=== PATIENT | male | born 1985 ===

== ENCOUNTER 2022-03-03 22:20 | Emergency (ER) | payer OTHER, SELFPAY ==
--- OUTSIDE RECORDS SUMMARY | 2022-03-03 22:24 | XMS REPORT | Continuity of Care Document ---
:1985 Author Organization [facility] t Address [address] [place] [address] Care Team Providers Name Role Phone Pob, [facility] Main Attending Clinician Unavailable Mi Reyes MD Attending Clinician Mi REYES Attending Clinician Unavailable Doctor Unassigned, Name Attending Clinician Unavailable CATALINO HITCHCOCK Attending Clinician Unavailable Melanie Frankel Attending Clinician Catalino Hitchcock MD Attending Clinician Pcp, Does Not Have A Attending Clinician Thai BERG Attending Clinician Pob1, Care Clinic Attending Clinician Unavailable Vishnu Jang Attending Clinician Vishnu HARTLEY Attending Clinician Unavailable FRANSISCA Attending Clinician Unavailable Payers Payer Name Policy Type Policy Number Effective Date Expiration Date Mi MARTIN II [id number] 2019 00:00:00 Problems Condition Condition Condition Status Onset Resolution Last Treating Co mments Source Name Details Category Date Date Treatment Clinician Date Viral Viral Disease Active 2020-0 Univers syndrome syndrome 4-15 ity of 00:00: [address] Cough Cough Disease Active 2020-0 Univers 4-15 ity of 00:: [address] Diarrhea, Diarrhea, Disease Active 2020-0 Uni vers unspecifie unspecifie 4-15 it y of d type d type 00:00: [address] Congestion Congestion Disease Active 2020-0 U nivers of nasal of nasal 4-15 ity of sinus sinus 00:00: [address] Sinus Sinus Disease Active 2020-0 Univers headache headache 4-15 ity of 00:00: [address] Allergies, Adverse Reactions, Alerts Allergy Allergy Status Severity Reaction(s) Onset Inactive Treating Comm ents Source Name Type Date Date Clinician NO KNOWN Drug Active Univers ALLERGIE Class ity of S [facility] Social History Social Habit Start Date Stop Date Quantity Comments Source History SDWV University o f Alcohol Std Drinks [facility] History SDOH University o f Alcohol Binge [facility] al [place] Exposure to Not sure [facility] SARS-CoV-2 (event) [facility] Cigarettes smoked 2020-03-12 2020-03-12 Univers ity of current (pack per 00:00:00 00:00:00 [facility] ) - Reported Branch Cigarette 2020-03-12 2020-03-12 University of pack-years 00:00:00 00:00:00 [facility] Alcohol intake 2020-03-12 2020-03-12 Current drinker Unive rsity of 00:00:00 00:00:00 of alcohol [facility] (finding) [place] Tobacco use and 2020-03-12 2020-03-12 Never used Universit y of exposure 00:00:00 00:00:00 [facility] History SDOH 2020-03-10 2020-03-10 1 University o f Alcohol Frequency 00:00:00 00:00:00 [facility] Alcohol Comment 2020-03-10 2020-03-10 rarely Universit y of 00:00:00 00:00:00 [facility] History of tobacco 2016-03-10 Smoker Univer sity of use 00:00:00 [facility] Sex Ass[birth year] At [birth year] Universit y of 00:00:00 00:00:00 [facility] Smoking Status Start Date Stop Date Source Former smoker 2020-03-12 00:00:00 2020-03-12 00:00:00 Universi ty of [facility] Medications Ordered Filled Start Stop Current Ordering Indication Dosage Frequency Signature Comments Components Source Medication Medication Date Date Medication? Clinician (SIG) Name Name bismuth Yes [id number] 262mg Take 1 Uni vers subsalicyla 4-15 tablet by ity of te 00:00: mouth 4 [place] (PEPTO-BISM 00 (four) Medica l OL) 262 mg times Branch chewable daily as tablet needed (diarrhea/ Loss Stools). fluticasone Yes [id number] 1{spray Use 1 Univers propionate 4-15 } [place] in ity o f 50 00:00: each [place] mcg/actuati 00 nostril Medic al on nasal daily. Branch spray benzonatate 2020-0 Yes [id number] 100mg Take 1 Univers (TESSALON 4-15 capsule by ity of PERLES) 100 00:00: mouth 3 [place] as mg capsule 00 (three) Medica l times Branch daily as needed for Cough. acetaminoph 2020-0 Yes [id number] 500mg Take 1 Univers en (TYLENOL 4-15 tablet by ity of EXTRA 00:00: mouth [place] STRENGTH) 00 every 6 Medical 500 mg (six) Branch tablet hours as needed (Headache) . bismuth 2020-0 Yes [id number] 262mg Take 1 Uni vers subsalicyla 4-15 tablet by ity of te 00:00: mouth 4 [place] (PEPTO-BISM 00 (four) Medica l OL) 262 mg times Branch chewable daily as tablet needed (diarrhea/ Loss Stools). fluticasone 2020-0 Yes [id number] 1{spray Use 1 Univers propionate 4-15 } [place] in ity o f 50 00:00: each [place] mcg/actuati 00 nostril Medic al on nasal daily. Branch spray benzonatate 2020-0 Yes [id number] 100mg Take 1 Univers (TESSALON 4-15 capsule by ity of PERLZauber) 100 00:00: mouth 3 [place] as mg capsule 00 (three) Medica l times Branch daily as needed for Cough. acetaminoph 2020-0 Yes [id number] 500mg Take 1 Univers en (TYLENOL 4-15 tablet by ity of EXTRA 00:00: mouth [place] STRENGTH) 00 every 6 Medical 500 mg (six) Branch tablet hours as needed (Headache) . bismuth 2020-0 Yes [id number] 262mg Take 1 Uni vers subsalicyla 4-15 tablet by ity of te 00:00: mouth 4 [place] (PEPTO-BISM 00 (four) Medica l OL) 262 mg times Branch chewable daily as tablet needed (diarrhea/ Loss Stools). fluticasone 2020-0 Yes [id number] 1{spray Use 1 Univers propionate 4-15 } [place] in ity o f 50 00:00: each [place] mcg/actuati 00 nostril Medic al on nasal daily. Branch spray benzonatate 2020-0 Yes [id number] 100mg Take 1 Univers (TESSALON 4-15 capsule by ity of PERLES) 100 00:00: mouth 3 [place] as mg capsule 00 (three) Medica l times Branch daily as needed for Cough. acetaminoph 2020-0 Yes [id number] 500mg Take 1 Univers en (TYLENOL 4-15 tablet by ity of EXTRA 00:00: mouth [place] STRENGTH) 00 every 6 Medical 500 mg (six) Branch tablet hours as needed (Headache) . bismuth 2020-0 Yes [id number] 262mg Take 1 Uni vers subsalicyla 4-15 tablet by ity of te 00:00: mouth 4 [place] (PEPTO-BISM 00 (four) Medica l OL) 262 mg times Branch chewable daily as tablet needed (diarrhea/ Loss Stools). fluticasone 2020-0 Yes [id number] 1{spray Use 1 Univers propionate 4-15 } [place] in ity o f 50 00:00: each [place] mcg/actuati 00 nostril Medic al on nasal daily. Branch spray benzonatate 2020-0 Yes [id number] 100mg Take 1 Univers (TESSALON 4-15 capsule by ity of PERLES) 100 00:00: mouth 3 [place] as mg capsule 00 (three) Medica l times Branch daily as needed for Cough. acetaminoph 2020-0 Yes [id number] 500mg Take 1 Univers en (TYLENOL 4-15 tablet by ity of EXTRA 00:00: mouth [place] STRENGTH) 00 every 6 Medical 500 mg (six) Branch tablet hours as needed (Headache) . bismuth 2020-0 Yes [id number] 262mg Take 1 Uni vers subsalicyla 4-15 tablet by ity of te 00:00: mouth 4 [place] (PEPTO-BISM 00 (four) Medica l OL) 262 mg times Branch chewable daily as tablet needed (diarrhea/ Loss Stools). fluticasone 2020-0 Yes [id number] 1{spray Use 1 Univers propionate 4-15 } [place] in ity o f 50 00:00: each [place] mcg/actuati 00 nostril Medic al on nasal daily. Branch spray benzonatate 2020-0 Yes [id number] 100mg Take 1 Univers (TESSALON 4-15 capsule by ity of PERLES) 100 00:00: mouth 3 [place] as mg capsule 00 (three) Medica l times Branch daily as needed for Cough. acetaminoph 2020-0 Yes [id number] 500mg Take 1 Univers en (TYLENOL 4-15 tablet by ity of EXTRA 00:00: mouth [place] STRENGTH) 00 every 6 Medical 500 mg (six) Branch tablet hours as needed (Headache) . bismuth 2020-0 Yes [id number] 262mg Take 1 Uni vers subsalicyla 4-15 tablet by ity of te 00:00: mouth 4 [place] (PEPTO-BISM 00 (four) Medica l OL) 262 mg times Branch chewable daily as tablet needed (diarrhea/ Loss Stools). fluticasone 2020-0 Yes [id number] 1{spray Use 1 Univers propionate 4-15 } [place] in ity o f 50 00:00: each [place] mcg/actuati 00 nostril Medic al on nasal daily. Branch spray benzonatate 2020-0 Yes [id number] 100mg Take 1 Univers (TESSALON 4-15 capsule by ity of PERLES) 100 00:00: mouth 3 [place] as mg capsule 00 (three) Medica l times Branch daily as needed for Cough. acetaminoph 2020-0 Yes [id number] 500mg Take 1 Univers en (TYLENOL 4-15 tablet by ity of EXTRA 00:00: mouth [place] STRENGTH) 00 every 6 Medical 500 mg (six) Branch tablet hours as needed (Headache) . bismuth 2020-0 Yes [id number] 262mg Take 1 Uni vers subsalicyla 4-15 tablet by ity of te 00:00: mouth 4 [place] (PEPTO-BISM 00 (four) Medica l OL) 262 mg times Branch chewable daily as tablet needed (diarrhea/ Loss Stools). fluticasone 2020-0 Yes [id number] 1{spray Use 1 Univers propionate 4-15 } [place] in ity o f 50 00:00: each [place] mcg/actuati 00 nostril Medic al on nasal daily. Branch spray benzonatate 2020-0 Yes [id number] 100mg Take 1 Univers (TESSALON 4-15 capsule by ity of PERLES) 100 00:00: mouth 3 [place] as mg capsule 00 (three) Medica l times Branch daily as needed for Cough. acetaminoph 2020-0 Yes [id number] 500mg Take 1 Univers en (TYLENOL 4-15 tablet by ity of EXTRA 00:00: mouth [place] STRENGTH) 00 every 6 Medical 500 mg (six) Branch tablet hours as needed (Headache) . bismuth 2020-0 Yes [id number] 262mg Take 1 Uni vers subsalicyla 4-15 tablet by ity of te 00:00: mouth 4 [place] (PEPTO-BISM 00 (four) Medica l OL) 262 mg times Branch chewable daily as tablet needed (diarrhea/ Loss Stools). fluticasone 2020-0 Yes [id number] 1{spray Use 1 Univers propionate 4-15 } [place] in ity o f 50 00:00: each [place] mcg/actuati 00 nostril Medic al on nasal daily. Branch spray benzonatate 2020-0 Yes [id number] 100mg Take 1 Univers (TESSALON 4-15 capsule by ity of ERIK) 100 00:00: mouth 3 [place] as mg capsule 00 (three) Medica l times Branch daily as needed for Cough. acetaminoph 2020-0 Yes [id number] 500mg Take 1 Univers en (TYLENOL 4-15 tablet by ity of EXTRA 00:00: mouth [place] STRENGTH) 00 every 6 Medical 500 mg (six) Branch tablet hours as needed (Headache) . albuterol 2019-0 Yes [id number] 2{puff} Inhale 2 Univers 90 4-13 Puffs ity of mcg/actuati 00:00: every 4 [place] as on inhaler 00 (four) Medical hours as Branch needed for Shortness of Breath or Chest tightness (cough). albuterol 2020-0 Yes [id number] 2{puff} Inhale 2 Univers 90 4-13 Puffs ity of mcg/actuati 00:00: every 4 [place] as on inhaler 00 (four) Medical hours as Branch needed for Shortness of Breath or Chest tightness (cough). albuterol 2020-0 Yes [id number] 2{puff} Inhale 2 Univers 90 4-13 Puffs ity of mcg/actuati 00:00: every 4 [place] as on inhaler 00 (four) Medical hours as Branch needed for Shortness of Breath or Chest tightness (cough). albuterol 2020-0 Yes [id number] 2{puff} Inhale 2 Univers 90 4-13 Puffs ity of mcg/actuati 00:00: every 4 [place] as on inhaler 00 (four) Medical hours as Branch needed for Shortness of Breath or Chest tightness (cough). albuterol 2020-0 Yes [id number] 2{puff} Inhale 2 Univers 90 4-13 Puffs ity of mcg/actuati 00:00: every 4 [place] as on inhaler 00 (four) Medical hours as Branch needed for Shortness of Breath or Chest tightness (cough). albuterol 2020-0 Yes [id number] 2{puff} Inhale 2 Univers 90 4-13 Puffs ity of mcg/actuati 00:00: every 4 [place] as on inhaler 00 (four) Medical hours as Branch needed for Shortness of Breath or Chest tightness (cough). albuterol 2020-0 Yes [id number] 2{puff} Inhale 2 Univers 90 4-13 Puffs ity of mcg/actuati 00:00: every 4 [place] as on inhaler 00 (four) Medical hours as Branch needed for Shortness of Breath or Chest tightness (cough). albuterol 2020-0 Yes [id number] 2{puff} Inhale 2 Univers 90 4-13 Puffs ity of mcg/actuati 00:00: every 4 [place] as on inhaler 00 (four) Medical hours as Branch needed for Shortness of Breath or Chest tightness (cough). Vital Signs Vital Name Observation Time Observation Value Comments Source Systolic blood 2021-01-10 23:37:00 128 [facility]Hg[facility] 2021-01-10 23:37:00 72 [facility] 2021-01-10 23:37:00 160 /min [facility] Body temperature 2021-01-10 23:37:00 37.22 Myriam [facility] Respiratory rate 2021-01-10 23:37:00 20 /min [facility] Body weight 2021-01-10 23:37:00 58.968 kg [facility] BMI 2021-01-10 23:37:00 19.77 kg/m2 [facility] Oxygen saturation in 2021-01-10 23:37:00 98 /min [facility] Arterial blood by [facility] Pulse oximetry Branch Systolic blood 2020-03-12 13:54:00 116 mm[Hg] Univer sity of pressure [facility] Diastolic blood 2020-03-12 13:54:00 70 mm[Hg] Unive rsity of pressure [facility] Heart rate 2020-03-12 13:54:00 69 /min Universi ty [facility] Body temperature 2020-03-12 13:54:[address] [facility] 2020-03-12 13:54:00 16 /min [facility] Body height 2020-03-12 13:54:00 172.7 cm Universi ty [facility] Body weight 2020-03-12 13:54:00 61.236 kg [facility] BMI 2020-03-12 13:54:00 20.53 kg/m2 [facility] Oxygen saturation in 2020-03-12 13:54:00 98 /min [facility] blood by [facility] Pulse oximetry Branch Procedures Procedure Date / Time Performed Performing Clinician [facility] e ASSIGNMENT OF BENEFITS 2021-07-14 19:46:49 Doctor Unassigned, No [facility] NOTICE OF PRIVACY 2021-01-10 23:32:10 Doctor Unassigned, No [facility] PRACTICES [facility] CONSENT/REFUSAL FOR 2021-01-10 23:31:48 Doctor Unassigned, No [facility] DIAGNOSIS AND [facility] TREATMENT Encounters Start End Encounter Admission Attending Care Care Encounter Source Date/Time Date/Time Type Type Clinicians Facility Department ID 2021-09-26 Emergency [facility] [id number] Univers 23:33:04 ity of [facility] 2021-07-14 2021-07-14 Retail Leasing Agent Shoshana, Liam Lab Main [facility] 1.2.8 [id number] Univers 14:49:14 15:04:14 Visit Liu Reyes [id number] 0 ity [place] [id number] Hanna Cheatham [id number] Ar d[place] [address] Branch Building 2021-07-14 2021-07-14 Outpatient R [facility] [id number] Univers 15:00:00 15:00:00 [id number] ity of [facility] 2021-07-14 2021-07-14 Outpatient R ERIC [facility] [id number] Univers 15:00:00 15:00:00 LIU [facility] 2021-07-14 2021-07-14 Orders Doctor NENITA [id number] Univers 00:00:00 00:00:00 Only Unassigned, FERNANDO [id number] ity of [place] [facility] [id number] [place] as [id number] [facility] 009 [place] 2021-03-06 2021-03-06 Outpatient Michaela HITCHCOCK [facility] [id number] Univers 09:30:00 09:30:00 ANTWON [id number] [facility] 2021-03-06 2021-03-06 Outpatient Michaela HITCHCOCK [facility] [id number] Univers 09:30:00 09:30:00 ANTWON [facility] 2021-01-10 2021-01-10 Emergency Lisa Barron [facility] [id number] Univers 17:38:00 18:14:00 Melanie Lentz [id number] i ty of [place] [id number] [place] [facility] [id number] [facility] 084 [place] 2021-01-10 2021-01-10 [facility] [id number] Univers 00:00:00 00:00:00 [facility] [id number] it y of [place] [id number] [place] as Professio [phone] Ar dical nal [address] [place] [address] 2021-01-10 2021-01-10 Letter [facility] [id number] Univers 00:00:00 00:00:00 (Out) Patient Health [id number] it y of Does [place] [id number] [place] Professio [phone] Ar dicnv nal [address] [place] [address] 2020-03-13 2020-03-13 Telephone Thai [facility] [id number] Univers 00:00:00 00:00:00 [facility] [id number] it y of [place] [id number] [place] as Professio [phone] [address] 2020-03-12 2020-03-12 Urgent Pob1, Acute Care Clinic [facility] 1. [id number] Univers 08:46:47 09:06:47 Care Carissa Hartley [facility] [id number] ity of [place] [id number] [place] as Professio [phone] [address] 2020-03-12 2020-03-12 Outpatient R CARMEN [facility] [id number] Univers 08:40:00 08:40:00 [facility] 2020-03-10 2020-03-10 Outpatient R ANDRY GONGORA [facility] [id number] Univers 13:20:00 13:20:00 [facility] Results This patient has no known results.
[2022-03-04] MEDS ORDERED: BUPIVACAINE 0.5% PF 10 ML VIAL ONE (00:24)
[2022-03-04] MEDS ORDERED: LIDOCAINE 1% MPF 5 ML VIAL ONE (00:24)
--- NOTE | 2022-03-04 01:18 | ER ---
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 Coronavirus screen: At this time, the client does not indicate any symptoms associated with coronavirus-19. Ebola Screen: No symptoms or risks identified at this time. Initial Sepsis Screen: Does the patient meet any 2 criteria? No. Patient's initial sepsis screen is negative. Does the patient have a suspected source of infection? No. Patient's initial sepsis screen is negative. Risk Assessment: Do you want to hurt yourself or someone else? Patient reports no desire to harm self or others. Onset of symptoms was March 03, 2022 at 22:29. 22:28 Method Of Arrival: Ambulatory ld1 22:28 Acuity: CARMEN 3 ld1 Triage Assessment: 22:29 General: Appears in no apparent distress. comfortable, Behavior is calm, cooperative, ld1 appropriate for age. Pain: Complains of pain in right hand Pain currently is 5 out of 10 on a pain scale. Neuro: Level of Consciousness is awake, alert, obeys commands, Oriented to person, place, time, situation. Cardiovascular: Capillary refill < 3 seconds Patient's skin is warm and dry. Respiratory: Airway is patent Respiratory effort is even, unlabored. Derm: Skin has skin tears on Right hand lacerations. Historical: - Allergies: 22:29 Bees; ld1 - Home Meds: 22:29 None [Active]; ld1 - PMHx: 22:29 mitral valve prolapse; ld1 - PSHx: 22:29 None; ld1 - Immunization history:: Adult Immunizations up to date, Client reports having NOT received the Covid vaccine. - Social history:: Smoking status: Reported history of juuling and/or vaping. Patient/guardian denies using alcohol. Screenin:30 Abuse screen: Denies threats or abuse. Nutritional screening: No deficits noted. tw5 Tuberculosis screening: No symptoms or risk factors identified. Fall Risk None identified. Assessment: 23:30 General: Appears in no apparent distress. uncomfortable, Behavior is calm, cooperative, tw5 appropriate for age. Pain: Complains of pain in dorsal aspect of proximal phalanx of right index finger, dorsal aspect of proximal phalanx of right middle finger and dorsum of right hand Pain does not radiate. Pain currently is 8 out of 10 on a pain scale. Neuro: Level of Consciousness is awake, alert, obeys commands, Oriented to person, place, time, situation. Cardiovascular: Patient's skin is warm and dry. Respiratory: Airway is patent Respiratory effort is even, unlabored, Respiratory pattern is regular, symmetrical. GI: No signs and/or symptoms were reported involving the gastrointestinal system. : No signs and/or symptoms were reported regarding the genitourinary system. EENT: No signs and/or symptoms were reported regarding the EENT system. Derm: Skin is pink, warm \T\ dry. Laceration to the right index finger, abrasion to the right hand. Musculoskeletal: Circulation, motion, and sensation intact. Range of motion: limited in MCP of right index finger and MCP of right middle finger. 03/04 01:36 Reassessment: Patient appears in no apparent distress at this time. Patient and/or tw5 family updated on plan of care and expected duration. Pain level reassessed. Patient is alert, oriented x 3, equal unlabored respirations, skin warm/dry/pink. Orthoglass splint placed on right hand, checked by ED provider. Vital Signs: 03/03 22:28 BP 171 / 87; Pulse 104; Resp 18; Temp 99.0(TE); Pulse Ox 99% on R/A; Weight 61.23 kg; ld1 Height 5 ft. 9 in. (175.26 cm); Pain 5/10; 03/04 01:36 BP 149 / 86; Pulse 81; Resp 16; Pulse Ox 99% on R/A; tw5 03/03 22:28 Body Mass Index 19.94 (61.23 kg, 175.26 cm) ld1 ED Course: 03/03 22:23 Patient arrived in ED. kz 22:29 Triage completed. ld1 22:29 Arm band placed on left wrist. ld1 22:37 Ayo Bryan PA is PHCP. cp 22:37 Ayo Marin MD is Attending Physician. cp 23:21 Arie Livingston, RN is Primary Nurse. jb4 23:30 Patient has correct armband on for positive identification. Bed in low position. Call tw5 light in reach. Side rails up X 1. Pulse ox on. NIBP on. 23:45 XRAY Hand RIGHT 3 View In Process Unspecified. EDMS 03/04 01:16 Diego Maxwell MD is Referral Physician. cp 01:37 No provider procedures requiring assistance completed. Patient did not have IV access tw5 during this emergency room visit. Administered Medications: 00:20 Drug: Lidocaine (1 %) 10 ml {Note: administered by ED provider.} Volume: 20 ml; Route: tw5 Infiltration; 00:20 Drug: Marcaine (bupivacaine) (0.5 %) 10 ml {Note: Administered by ED provider.} Volume: tw5 10 ml; Route: Infiltration; 00:43 Not Given (Patient Refused): morphine 4 mg IVP once; RASS on ADMIN: Combtv4, Very tw5 Agttd3, Agttd2, Rstlss1, AlertClm0, Drwsy-1, Lt Sdtn-2, Mod Sdtn-3, Dp Sdtn-4, UnArsble-5 00:43 Not Given (Patient Refused): NS 0.9% 1000 ml IV at 1 bolus Per protocol; 1000 mL bolus tw5 Outcome: 01:18 Discharge ordered by MD. cp 01:37 Discharged to home ambulatory, with friend. tw5 01:37 Condition: stable 01:37 Discharge instructions given to patient, Instructed on discharge instructions, follow up and referral plans. medication usage, Demonstrated understanding of instructions, follow-up care, medications, Prescriptions given X 1. 01:38 Patient left the ED. tw5 Signatures: Dispatcher [employer] [facility] Ayo Bryan PA PA cp Arie Livingston, RN RN jb4 Pippa Brown RN RN Jennifer Covarrubias tw5 Reema Espino Corrections: (The following items were deleted from the chart) 01:37 01:37 No provider procedures requiring assistance completed. tw5 tw5 01:38 01:36 Reassessment: Patient appears in no apparent distress at this time. Patient tw5 and/or family updated on plan of care and expected duration. Pain level reassessed. Patient is alert, oriented x 3, equal unlabored respirations, skin warm/dry/pink. tw5
--- NOTE | 2022-03-04 01:18 | EDPHYS ---
Physician Documentation [facility] Name: Gilberto Pugh Age: 36 yrs Sex: Male : 1985 Arrival Date: 03/03/2022 Time: 22:23 Bed 23 Private MD: ED Physician Ayo Marin HPI: 03/03 23:35 This 36 yrs old Male presents to ER via Ambulatory with complaints of Crush Injury To cp Hand - Right. 23:35 The patient or guardian reports crush injury. The complaints affect the right hand cp diffusely. Context: The problem was sustained at work, resulted from a crush injury, heavy door of engine room. 03/04 00:18 Onset: The symptoms/episode began/occurred just prior to arrival. Associated signs and cp symptoms: Pertinent negatives: cyanosis distally. Historical: - Allergies: 03/03 22:29 Bees; ld1 - Home Meds: 22:29 None [Active]; ld1 - PMHx: 22:29 mitral valve prolapse; ld1 - PSHx: 22:29 None; ld1 - Immunization history:: Adult Immunizations up to date, Client reports having NOT received the Covid vaccine. - Social history:: Smoking status: Reported history of juuling and/or vaping. Patient/guardian denies using alcohol. ROS: 23:40 MS/extremity: Positive for injury or acute deformity, decreased range of motion, pain, cp of the right hand. 23:40 Constitutional: Negative for body aches, chills, fever. cp 23:40 All other systems are negative. cp Exam: 23:45 Constitutional: The patient appears in no acute distress, alert, awake, non-toxic, well cp developed, well nourished, uncomfortable. 23:45 Musculoskeletal/extremity: Extremities: grossly normal except: noted in the right hand: cp swelling, tenderness, ROM: limited active range of motion, in the right index finger, limited passive range of motion due to pain, in the right index finger, Perfusion: the extremity is normally perfused throughout, the right index finger Severe pain noted. Vital Signs: 22:28 BP 171 / 87; Pulse 104; Resp 18; Temp 99.0(TE); Pulse Ox 99% on R/A; Weight 61.23 kg; ld1 Height 5 ft. 9 in. (175.26 cm); Pain 04/06; 03/04 01:36 BP 149 / 86; Pulse 81; Resp 16; Pulse Ox 99% on R/A; tw5 03/03 22:28 Body Mass Index 19.94 (61.23 kg, 175.26 cm) ld1 Procedures: 01:30 Splinting: Splint applied to right index and right middle fingers using Orthoglass cp splint, sugar tong type. applied by tech. Examined by me, post splint application: neurovascular intact, Patient tolerated well. MDM: 03/03 23:10 Patient medically screened. gilberto 03/04 01:18 Data reviewed: vital signs, nurses notes, radiologic studies, plain films. cp 01:18 Differential diagnosis: dislocation, open fracture, closed fracture, contusion. Test cp interpretation: by ED physician or midlevel provider: plain radiologic studies. Counseling: I had a detailed discussion with the patient and/or guardian regarding: the historical points, exam findings, and any diagnostic results supporting the discharge/admit diagnosis, radiology results, the need for outpatient follow up, for definitive care, a hand specialist. Response to treatment: the patient's symptoms have markedly improved after treatment, and as a result, I will discharge patient. 03/03 23:29 Order name: XRAY Hand RIGHT 3 View cp 03/03 23:48 Order name: Dressing - Wound; Complete Time: 01:35 cp 03/03 23:48 Order name: Gloves, Sterile; Complete Time: 01:35 cp 03/03 23:48 Order name: Setup Suture Tray; Complete Time: 01:35 cp 03/04 00:36 Order name: Dressing - Wound: antibiotic ointment and nonstick dressing; Complete Time: cp 01:34 Administered Medications: 00:20 Drug: Lidocaine (1 %) 10 ml {Note: administered by ED provider.} Volume: 20 ml; Route: tw5 Infiltration; 00:20 Drug: Marcaine (bupivacaine) (0.5 %) 10 ml {Note: Administered by ED provider.} Volume: tw5 10 ml; Route: Infiltration; 00:43 Not Given (Patient Refused): morphine 4 mg IVP once; RASS on ADMIN: Combtv4, Very tw5 Agttd3, Agttd2, Rstlss1, AlertClm0, Drwsy-1, Lt Sdtn-2, Mod Sdtn-3, Dp Sdtn-4, UnArsble-5 00:43 Not Given (Patient Refused): NS 0.9% 1000 ml IV at 1 bolus Per protocol; 1000 mL bolus tw5 Disposition: 07:15 Co-signature as Attending Physician, Ayo Marin MD I agree with the assessment and gilberto plan of care. Disposition Summary: 03/04/22 01:18 Discharge Ordered Location: Home cp Problem: new cp Symptoms: have improved cp Condition: Stable cp Diagnosis - Displaced fracture of proximal phalanx of right index finger, initial encounter for cp closed fracture Followup: cp - With: Diego Maxwell MD - When: 1 - 2 days - Reason: Recheck today's complaints Discharge Instructions: - Discharge Summary Sheet cp - Finger Fracture, Adult cp Forms: - Medication Reconciliation Form cp - Thank You Letter cp - Antibiotic Education cp - Prescription Opioid Use cp Prescriptions: - Naprosyn 500 mg Oral Tablet - take 1 tablet by ORAL route 2 times per day take with food; 20 tablet; Refills: cp 0, Product Selection Permitted Signatures: Dispatcher [employer] EDAyo Dwyer MD MD cha Page, Corey, EVELYN PA cp Pippa Brown RN RN ld1 Jennifer Schultz tw5 Corrections: (The following items were deleted from the chart) 00:18 04 23:35 Context: The problem was sustained at work, resulted from a crush injury, cp heavy door, cp 03/04 00:43 03/03 23:29 IV Saline Lock ordered. cp tw5 03/05 00:48 03/04 02:00 Splinting: Splint applied to right index and right middle fingers using cp Orthoglass splint, sugar tong type. applied by tech. Examined by me, post splint application: neurovascular intact, Patient tolerated well, cp
--- NOTE | 2022-03-04 10:44 | RAD REPORT ---
EXAM DESCRIPTION: RAD - Hand Right 3 View - 03/03/2022 11:43 pm CLINICAL HISTORY: Crush injury;Pain. COMPARISON: None. TECHNIQUE: Three views of the right hand were obtained: PA, oblique, and lateral radiographs. FINDINGS: There is an acute comminuted fracture of the index finger proximal phalanx base with mild impaction. No intra-articular extension identified. Surrounding soft tissue swelling. IMPRESSION: Acute comminuted fracture of the index finger proximal phalanx base. Electronically signed by: Radha Toro MD 03/03/2022 11:53 PM CDT Due to temporary technical issues with the PACS/Fluency reporting system, reports are being signed by the in house radiologists without review as a courtesy to insure prompt reporting. The interpreting radiologist is fully responsible for the content of the report.
[2022-03-04 11:13] VITALS: TEMP 99; O2SAT 99
[2022-03-04 11:14] VITALS: BP 149/86
== END 2022-03-04 01:38 | disposition home or self-care (01) ==
LOC: ER 22:20
PROC: 2W3JX1Z Immobilization of Right Finger using Splint (ICD-10-PCS; principal; 2022-03-04)
DX: S62.610A Displaced fracture of proximal phalanx of right index finger, initial encounter for closed fracture (principal); X58.XXXA Exposure to other specified factors, initial encounter; Y92.89 Other specified places as the place of occurrence of the external cause; Y99.8 Other external cause status; Z91.030 Bee allergy status
CPT/HCPCS: 99284